=== PATIENT | male | born 1980 | race Two or more races ===

== ENCOUNTER 2018-05-27 18:58 | Emergency (ER) | payer MEDICAID ==
[~2018-05-27] VITALS: Ht 172.7 cm; Wt 72.6 kg
--- NOTE | 2018-05-27 19:43 | NUR ---
TO ER BED 15 C/O DEPRESSION, +SI. AA/O X4. "MY WANTS A DIVORCE." NO S/S SOB. SKIN PINK, WARM, DRY. MOVES ALL EXTREMITIES WELL. AMBULATED TO HOSPITAL BED WITH STABLE GAIT. NAD. VSS. STABLE CONDITION. WILL CONTINUE TO MONITOR.
[2018-05-27 20:05] LABS: BASOPHILS # (AUTO) 0.1 /CMM (0.0-0.2); BASOPHILS % (AUTO) 0.8 % (0.0-2.0); EOSINOPHILS % (AUTO) 8.3 % (0.0-6.0); HEMATOCRIT 46 % (39-51); HEMOGLOBIN 15.5 g/dL (13.5-17.5); LYMPHOCYTES % (AUTO) 47.2 % (20.0-44.0); MEAN CORPUSCULAR HGB CONC 34 g/dl (31.0-36.0); MEAN CORPUSCULAR VOLUME 87 fL (80-96); MONOCYTES # (AUTO) 0.4 /CMM (0.1-1.30); MONOCYTES % (AUTO) 5.6 % (2.0-12.0); NEUTROPHILS # (AUTO) 2.6 /CMM (1.8-8.9); NEUTROPHILS % (AUTO) 38.1 % (43.0-81.0); PLATELET COUNT (AUTO) 286 /CMM (150-450); RED BLOOD CELL COUNT(AUTO) 5.29 MIL/uL (4.5-6.0); WHITE BLOOD COUNT (AUTO) 6.7 K/uL (4.3-11.0)
[2018-05-27 20:20] LABS: CALCIUM, SERUM 8.6 mg/dL (8.5-10.1); CREATININE 0.8 mg/dL (0.6-1.3); POTASSIUM 3.7 mmol/L (3.5-5.1)
[2018-05-27 20:26] LABS: ALBUMIN 3.9 g/dL (3.4-5.0); BILIRUBIN,DIRECT 0.1 mg/dL (0.0-0.2); BILIRUBIN,TOTAL 0.4 mg/dL (0.2-1.0); TOTAL PROTEIN, SERUM 7.9 g/dL (6.4-8.2)
[2018-05-27 20:29] LABS: APPEARANCE,URINE Clear (CLEAR); BILIRUBIN,URINE Negative (NEGATIVE); BLOOD, URINE Negative Ery/uL (NEGATIVE); COLOR,URINE Yellow (YELLOW); KETONES,URINE Negative (NEGATIVE); LEUKOCYTE ESTERASE ,URINE Negative (NEGATIVE); NITRITE, URINE Negative (NEGATIVE); PH,URINE 5.5 (5.0-8.0); PROTEIN,URINE Negative (NEGATIVE); UGLUCOSE Negative (NEGATIVE); UROBILINOGEN,URINE 0.2 EU/dL (0.2)
--- NOTE | 2018-05-27 21:27 | NUR ---
AMBULATED TO BATHROOM WITH STABLE GAIT. NAD. VSS. STABLE CONDITION.
--- NOTE | 2018-05-28 00:03 | NUR ---
ART FOOD CART ATTENDANT PAGED.
--- NOTE | 2018-05-28 01:03 | NUR ---
Patient discharged to home in stable condition. Written and verbal after care instructions given. Patient verbalizes understanding of instruction. AMBULATED WITH STEADY GAIT. NAD. CHENG. 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
[2018-05-28 01:04] VITALS: BP 130/77
== END 2018-05-28 01:05 | disposition home or self-care (01) ==
LOC: ER 19:00
DX: R45.851 Suicidal ideations (principal); F41.9 Anxiety disorder, unspecified; F12.90 Cannabis use, unspecified, uncomplicated; F90.9 Attention-deficit hyperactivity disorder, unspecified type; Z60.2 Problems related to living alone
CPT/HCPCS: 36415; 80048; 80076; 80305; 80329; 81001; 85025; 99284; G0480 ×2; 81000-TC; A4606; Z7610

== ENCOUNTER 2018-05-29 17:33 | Emergency (ER) | payer BC, MEDICAID ==
[~2018-05-29] VITALS: Ht 177.8 cm; Wt 81.2 kg
--- NOTE | 2018-05-29 17:43 | NUR ---
37 Y/O MALE PLACED IN BED 6 C/O EXCESS ALCOHOL CONSUMPTION.
[2018-05-29 18:26] LABS: BASOPHILS # (AUTO) 0.1 /CMM (0.0-0.2); BASOPHILS % (AUTO) 0.8 % (0.0-2.0); EOSINOPHILS % (AUTO) 2.5 % (0.0-6.0); HEMATOCRIT 44 % (39-51); HEMOGLOBIN 14.6 g/dL (13.5-17.5); LYMPHOCYTES # (AUTO) 2.5 /CMM (0.8-4.8); LYMPHOCYTES % (AUTO) 39.8 % (20.0-44.0); MEAN CORPUSCULAR HGB CONC 33 g/dl (31.0-36.0); MEAN CORPUSCULAR VOLUME 87 fL (80-96); MONOCYTES # (AUTO) 0.2 /CMM (0.1-1.30); MONOCYTES % (AUTO) 3.8 % (2.0-12.0); NEUTROPHILS # (AUTO) 3.3 /CMM (1.8-8.9); NEUTROPHILS % (AUTO) 53.1 % (43.0-81.0); PLATELET COUNT (AUTO) 256 /CMM (150-450); RED BLOOD CELL COUNT(AUTO) 5.03 MIL/uL (4.5-6.0); WHITE BLOOD COUNT (AUTO) 6.3 K/uL (4.3-11.0)
--- NOTE | 2018-05-29 18:27 | NUR ---
PT SEEN BY BERNARD. H/L 20G PLACED IN LEFT A/C. BLOOD DRAWN AND SENT TO LAB. IVF RUNNING. URINAL AT BEDSIDE
[2018-05-29] MEDS ORDERED: IV NS 0.9% 1,000 ML BAG IV ONE (18:30)
[2018-05-29 18:37] LABS: CALCIUM, SERUM 8.9 mg/dL (8.5-10.1); CARBON DIOXIDE 27 mmol/L (21-32); CHLORIDE 103 mmol/L (98-107); CREATININE 0.9 mg/dL (0.6-1.3); GLUCOSE 101 mg/dL (74-106); POTASSIUM 3.2 mmol/L (3.5-5.1); SODIUM SERUM 142 mmol/L (136-145); UREA NITROGEN, BLOOD 16 mg/dL (7-18)
[2018-05-29 18:50] LABS: ALANINE AMINOTRANSFERASE 26 U/L (12-78); ALBUMIN 3.7 g/dL (3.4-5.0); ALCOHOL, BLOOD 236 mg/dL (0-0); ALKALINE PHOSPHATASE 82 U/L (46-116); ASPARTATE AMINOTRANSFERASE 18 U/L (15-37); BILIRUBIN,DIRECT 0.1 mg/dL (0.0-0.2); BILIRUBIN,TOTAL 0.3 mg/dL (0.2-1.0); TOTAL PROTEIN, SERUM 7.3 g/dL (6.4-8.2)
[2018-05-29 18:53] LABS: ACETAMINOPHEN < 2 ug/ml (10-30); SALICYLATE 0.7 mg/dL (2.8-20.0)
--- NOTE | 2018-05-29 19:12 | NUR ---
RECEIVED REPORT FROM PILY SAMUEL FOR CHUY. PT RESTING IN BED WITH NO S/S OF DISTRESS NOTED. WILL CONTINEU TO MONITOR PT.
--- NOTE | 2018-05-29 20:11 | NUR ---
PT PULLED IV OUT, MD MADE AWARE. Catheter intact and site benign. Pressure and 4x4 applied to site. No bleeding noted.
[2018-05-29 23:01] VITALS: BP 128/74
--- NOTE | 2018-05-29 23:01 | NUR ---
PT ALERT AND ORIENTED X 4, REQUESTING TO BE DISCHARGED HOME. NO SIGNS OF DISTRESS NOTED. PT VITAL SIGNS STABLE. Patient discharged to home in stable condition. Written and verbal after care instructions given. Patient verbalizes understanding of instruction. PT ambulatory with a steady gait
== END 2018-05-29 23:03 | disposition home or self-care (01) ==
LOC: ER 17:35
DX: F10.129 Alcohol abuse with intoxication, unspecified (principal); E87.6 Hypokalemia; F17.200 Nicotine dependence, unspecified, uncomplicated; R94.02 Abnormal brain scan; Y90.7 Blood alcohol level of 200-239 mg/100 ml; Z60.2 Problems related to living alone
CPT/HCPCS: 36415; 70450; 80048; 80076; 80329; 85025; 99285; G0480 ×2; A4606; Z7610

== ENCOUNTER 2023-01-04 12:29 | Emergency (ER) | payer BC, MEDICAID, OTHER ==
[~2023-01-04] VITALS: Ht 167.6 cm; Wt 62.6 kg
--- NOTE | 2023-01-04 12:42 | NUR ---
[id number] AND [id number] FROM A STORE, SOB 1 HOUR AGO [employer] ARREST. [employer] AT BEDSIDE.
[2023-01-04 13:43] LABS: BASOPHILS % (AUTO) 0.6 % (0.0-2.0); HEMATOCRIT 45 % (39-51); HEMOGLOBIN 14.7 g/dL (13.5-17.5); LYMPHOCYTES % (AUTO) 38.2 % (20.0-44.0); MEAN CORPUSCULAR HGB CONC 33 g/dl (31.0-36.0); MEAN CORPUSCULAR VOLUME 87 fL (80-96); MONOCYTES # (AUTO) 0.3 K/uL (0.1-1.30); MONOCYTES % (AUTO) 6.4 % (2.0-12.0); NEUTROPHILS # (AUTO) 2.7 K/uL (1.8-8.9); NEUTROPHILS % (AUTO) 51.8 % (43.0-81.0); PLATELET COUNT (AUTO) 291 K/uL (150-450); RED BLOOD CELL COUNT(AUTO) 5.12 MIL/uL (4.5-6.0); WHITE BLOOD COUNT (AUTO) 5.1 K/uL (4.3-11.0)
[2023-01-04 13:56] LABS: CALCIUM, SERUM 9.2 mg/dL (8.5-10.1); CARBON DIOXIDE 29 mmol/L (21-32); CHLORIDE 104 mmol/L (98-107); CREATININE 0.9 mg/dL (0.6-1.3); GLUCOSE 115 mg/dL (74-106); POTASSIUM 3.7 mmol/L (3.5-5.1); SODIUM SERUM 140 mmol/L (136-145); UREA NITROGEN, BLOOD 15 mg/dL (7-18)
[2023-01-04 16:40] VITALS: BP 110/80
== END 2023-01-04 16:52 ==
LOC: ER 12:41
DX: R06.02 Shortness of breath (principal); F17.200 Nicotine dependence, unspecified, uncomplicated; Z60.2 Problems related to living alone
CPT/HCPCS: 36415; 71045-TC; 80048-TC; 84484-TC; 85025-TC